=== PATIENT | female | born 1955 | race Caucasian/White ===

== ENCOUNTER 2023-11-28 14:26 | Emergency (ER) | payer MEDICARE ==
[2023-11-28 14:35] VITALS: TEMP 98.5
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
[2023-11-28] MEDS: HYDROmorphone 1 MG/ML 1 ML SYRINGE IM STA (15:50)
--- NOTE | 2023-11-28 16:21 | XR ---
EXAMINATION TYPE: XR ankle complete LT DATE OF EXAM: 11/28/2023 4:07 PM CLINICAL INDICATION:Female, 68 years old with history of pain; COMPARISON: None TECHNIQUE: XR ankle complete LT; ankle is imaged in frontal, lateral and oblique projections. FINDINGS: There is no evidence of acute osseous pathology. No evidence of subluxation or dislocation. Kager's fat pad is intact. Soft tissues are within normal limits. No radiopaque foreign bodies are identified . Calcaneal Achilles enthesophyte. Calcaneal plantar spurring is present. Multifocal degeneration chaparro nges throughout the joints of the foot with osteophyte formation and joint space narrowing. IMPRESSION: 1. No evidence of acute fracture. 2. Subcutaneous swelling around the ankle likely secondary to underlying soft tissue injury.
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
[2023-11-28] MEDS: ACET/COD 300 MG/30 MG STARTER PACK 6 TAB BTL PO STA (16:34)
[2023-11-28 17:05] VITALS: BP 163/90; PULSE 68; RESP 18
== END 2023-11-28 17:05 | disposition home or self-care (01) ==
LOC: EC 14:26
DX: S13.4XXA Sprain of ligaments of cervical spine, initial encounter (principal); M25.519 Pain in unspecified shoulder; M54.9 Dorsalgia, unspecified; Z88.1 Allergy status to other antibiotic agents; Z88.8 Allergy status to other drugs, medicaments and biological substances; V89.2XXA Person injured in unspecified motor-vehicle accident, traffic, initial encounter; Y92.411 Interstate highway as the place of occurrence of the external cause
CPT/HCPCS: 99284; 96372; 72070; 73610; 71045; 72125; 70450; J1170